=== PATIENT | female | born 1980 | race African-American/Black ===

== ENCOUNTER 2017-08-18 08:03 | Emergency (ER) | payer OTHER, MEDICAID ==
[~2017-08-18] VITALS: Ht 167.6 cm; Wt 95.8 kg
[~2017-08-18 08:03] MED LIST: DOCU240C31 PO; IBUP100T11 PO; LABE300T PO; METH500T2 PO; NIFE30TA25 PO; OXYC-302 PO
[2017-08-18] MEDS ORDERED: DIAZEPAM 5 MG TABLET ONE ×2 (09:18→09:22)
[2017-08-18] MEDS ORDERED: HYDROcodone/APAP 5/325 TABLET ONE (09:18)
[2017-08-18] MEDS ORDERED: HYDROcodone/APAP 5/325 TABLET PO ONE (09:30)
[2017-08-18] MEDS ORDERED: DIAZEPAM 5 MG TABLET PO ONE (09:30)
[2017-08-18 12:00] VITALS: BP 161/107
== END 2017-08-18 12:04 | disposition home or self-care (01) ==
LOC: ED 10:36
DX: S16.1XXA Strain of muscle, fascia and tendon at neck level, initial encounter (principal); S29.012A Strain of muscle and tendon of back wall of thorax, initial encounter; G44.219 Episodic tension-type headache, not intractable; I10 Essential (primary) hypertension; V49.49XA Driver injured in collision with other motor vehicles in traffic accident, initial encounter; Y93.89 Activity, other specified; Y92.89 Other specified places as the place of occurrence of the external cause; Y99.8 Other external cause status
CPT/HCPCS: 70450; 72072; 72125; 99284

== ENCOUNTER 2018-02-21 00:29 | Emergency (ER) | payer OTHER, MEDICAID ==
[~2018-02-21] VITALS: Ht 167.6 cm; Wt 97.7 kg
[~2018-02-21 00:29] MED LIST changes: -LABE300T PO; +LABE300T2 PO; +METH500T11 PO; -METH500T2 PO
[2018-02-21 00:34] VITALS: BP 150/104
[2018-02-21] MEDS ORDERED: IBUPROFEN 200 MG TABLET PO ONE (01:00)
[2018-02-21] MEDS ORDERED: IBUPROFEN 200 MG TABLET ONE (01:07)
== END 2018-02-21 01:41 | disposition home or self-care (01) ==
LOC: ED 01:30
DX: S83.92XA Sprain of unspecified site of left knee, initial encounter (principal); M25.462 Effusion, left knee; M25.552 Pain in left hip; W19.XXXA Unspecified fall, initial encounter; Y93.55 Activity, bike riding; Y92.520 Airport as the place of occurrence of the external cause; Y99.8 Other external cause status
CPT/HCPCS: 99284

== ENCOUNTER → 2018-03-07 | Outpatient (CLI) | payer OTHER, MEDICAID ==
[2018-03-07 10:55] LABS: BASOPHILS # (AUTO) 0.03 x10^3/uL (0-0.1); BASOPHILS % (AUTO) 1 % (0-1); EOSINOPHILS # (AUTO) 0.06 x10^3/uL (0-0.4); EOSINOPHILS % (AUTO) 1 % (1-7); LYMPHOCYTES # (AUTO) 2.98 x10^3/uL (1-3.4); LYMPHOCYTES % (AUTO) 47 % (22-44); MD NO; MEAN CORPUSCULAR HEMOGLOBIN 28.2 pg (27.0-34.8); MEAN CORPUSCULAR HGB CONC 33.1 g/dL (32.4-35.8); MEAN CORPUSCULAR VOLUME 85.1 fL (80-100); MEAN PLATELET VOLUME 7.4 fL (7.4-10.4); MONOCYTES # (AUTO) 0.31 x10^3/uL (0.2-0.8); MONOCYTES % (AUTO) 5 % (2-9); NEUTROPHILS # (AUTO) 2.98 x10^3/uL (1.8-6.8); NEUTROPHILS % (AUTO) 47 % (42-75); PLATELET COUNT 428 x10^3/uL (130-400); RED BLOOD COUNT 4.14 x10^6/uL (3.82-5.3); RED CELL DISTRIBUTION WIDTH 14.4 % (9.6-15.2)
[2018-03-07 11:01] LABS: CHLORIDE 107 mmol/L (98-107)
[2018-03-07 11:16] LABS: ALANINE AMINOTRANSFERASE 15 U/L (12-78); ALBUMIN 3.7 g/dL (3.4-5.0); ALKALINE PHOSPHATASE 75 U/L (45-117); ANION GAP 9 mmol/L (5-15); BILIRUBIN,TOTAL 0.4 mg/dL (0.2-1.0); CALCIUM 9.1 mg/dL (8.5-10.1); CREATININE 0.75 mg/dL (0.55-1.02); TOTAL PROTEIN 7.6 g/dL (6.4-8.2)
== END | disposition home or self-care (01) ==
LOC: STAR 09:27
PROVIDERS: ATTEND Obstetrics & Gynecology
DX: Z01.818 Encounter for other preprocedural examination (principal); D25.1 Intramural leiomyoma of uterus; N92.0 Excessive and frequent menstruation with regular cycle
CPT/HCPCS: 36415; 80053; 84703; 85025; 93005

== ENCOUNTER 2018-03-12 06:47 | Inpatient (IN) | payer OTHER, MEDICAID ==
[~2018-03-12] VITALS: Ht 167.6 cm; Wt 105.2 kg
[~2018-03-12 06:47] MED LIST changes: +LISI1TAB3 PO
[2018-03-12 08:13] LABS: HCG UR SG 1.023 (1.003-1.030)
[2018-03-12] MEDS ORDERED: LACTATED RINGERS 1,000 ML IV SCH (09:00)
[2018-03-12] MEDS ORDERED: OxyconTIN ER 10 MG TAB.ER PO ONE (09:00)
[2018-03-12] MEDS ORDERED: ACETAMINOPHEN 500 MG TABLET PO ONE (09:00)
[2018-03-12] MEDS ORDERED: ONDANSETRON ODT 8 MG PO ONE (09:00)
[2018-03-12] MEDS ORDERED: SCOPOLAMINE PATCH, 1.5MG PATCH.TD72 TD ONE (09:00)
[2018-03-12] MEDS ORDERED: GABAPENTIN 300 MG CAPSULE PO ONE (09:00)
[2018-03-12] MEDS ORDERED: MIDAZOLAM 1 MG/ML, 2ML ONE (09:29)
[2018-03-12] MEDS ORDERED: FENTANYL PF 250 MCG/5ML ONE (09:29)
[2018-03-12] MEDS ORDERED: PROPOFOL 10 MG/ML, 20ML ONE (09:30)
[2018-03-12] MEDS ORDERED: LIDOCAINE-MPF 2% ,5ML ONE (09:30)
[2018-03-12] MEDS ORDERED: ROCURONIUM 10MG/ML,5ML ONE (09:31)
[2018-03-12] MEDS ORDERED: DEXAMETHASONE 4 MG/ML, 1ML ONE ×2 (09:31)
[2018-03-12] MEDS ORDERED: BUPIVACAINE/PF 0.5% ONE (09:32)
[2018-03-12] MEDS ORDERED: CEFOTETAN PMX 2GM/50ML 50 ML ONE (09:32)
[2018-03-12] MEDS ORDERED: OXYcodone 5 MG/5 ML ORAL.SOL UDC PO PRN (12:30)
[2018-03-12] MEDS ORDERED: PROMETHAZINE 25 MG/ML, 1ML IV PRN (12:30)
[2018-03-12] MEDS ORDERED: HALOPERIDOL 5 MG/ML IV PRN (12:30)
[2018-03-12] MEDS ORDERED: LABETALOL 5MG/ML, 20ML IV PRN (12:30)
[2018-03-12] MEDS ORDERED: FENTANYL PF 100 MCG/2ML IV PRN (12:30)
[2018-03-12] MEDS ORDERED: MEPERIDINE/PF 25MG/0.5ML IVPush PRN (12:30)
[2018-03-12] MEDS ORDERED: hydrALAzine 20 MG/ML, 1ML IV PRN (12:30)
[2018-03-12] MEDS ORDERED: HYDROmorphone 1 MG/ML, 1ML IV PRN (12:30)
[2018-03-12] MEDS ORDERED: LORazepam 2 MG/ML, 1ML IVPush PRN (12:30)
[2018-03-12] MEDS ORDERED: OXYcodone 5 MG/5 ML ORAL.SOL UDC ONE (12:39)
[2018-03-12 13:45] VITALS: BP 119/79
[2018-03-12] MEDS ORDERED: ACETAMINOPHEN 650 MG SUPP PR PRN (14:00)
[2018-03-12] MEDS ORDERED: ACETAMINOPHEN 325 MG TABLET PO PRN (14:00)
[2018-03-12] MEDS ORDERED: BISACODYL 10 MG SUPP PR PRN (14:00)
[2018-03-12] MEDS: SIMETHICONE 80 MG CHEW TAB PO SCH ×2 (15:18→20:26)
[2018-03-12] MEDS: OXYcodone/APAP 5/325MG TABLET PO PRN ×2 (15:19→20:26)
[2018-03-12] MEDS: IBUPROFEN 600 MG TABLET PO SCH ×3 (15:19→21:55)
[2018-03-12] MEDS: morphine SULFATE 10 MG/ML, 1ML IV PRN ×2 (16:08→16:29)
[2018-03-12 16:15] LABS: MEAN CORPUSCULAR HEMOGLOBIN 28.3 pg (27.0-34.8); MEAN CORPUSCULAR HGB CONC 33.4 g/dL (32.4-35.8); MEAN CORPUSCULAR VOLUME 84.5 fL (80-100); MEAN PLATELET VOLUME 7.2 fL (7.4-10.4); PLATELET COUNT 345 x10^3/uL (130-400); RED BLOOD COUNT 4.08 x10^6/uL (3.82-5.3); RED CELL DISTRIBUTION WIDTH 14.6 % (9.6-15.2)
[2018-03-12 16:54] LABS: MD SCAN
[2018-03-12 16:56] LABS: BASOPHILS % (AUTO) 0 % (0-1); EOSINOPHILS % (AUTO) 0 % (1-7); LYMPHOCYTES # (AUTO) 1.23 x10^3/uL (1-3.4); LYMPHOCYTES % (AUTO) 8 % (22-44); MONOCYTES # (AUTO) 0.06 x10^3/uL (0.2-0.8); MONOCYTES % (AUTO) 0 % (2-9); NEUTROPHILS # (AUTO) 14.47 x10^3/uL (1.8-6.8); NEUTROPHILS % (AUTO) 92 % (42-75)
[2018-03-12] MEDS: D5%-LACTATED RINGERS 1,000 ML IV SCH (17:00)
[2018-03-12 20:08] VITALS: BP 141/92
[2018-03-12] MEDS: DOCUSATE 100 MG CAPSULE PO SCH (20:25)
[2018-03-12] MEDS: HYDROCHLOROTHIAZIDE 12.5 MG CAPSULE PO SCH (20:25)
[2018-03-12] MEDS: SENNA/DOCUSATE TABLET PO SCH (20:26)
[2018-03-12] MEDS: LISINOPRIL 10 MG TABLET PO SCH (20:26)
[2018-03-12] MEDS ORDERED: ZOLPIDEM 5MG TABLET PO PRN (21:00)
[2018-03-13 00:19] VITALS: BP 133/86
[2018-03-13] MEDS: OXYcodone/APAP 5/325MG TABLET PO PRN ×6 (00:30→21:14)
[2018-03-13] MEDS: D5%-LACTATED RINGERS 1,000 ML IV SCH ×3 (01:57→21:20)
[2018-03-13 04:13] VITALS: BP 117/76
[2018-03-13 05:34] LABS: BASOPHILS % (AUTO) 0 % (0-1); EOSINOPHILS # (AUTO) 0.01 x10^3/uL (0-0.4); EOSINOPHILS % (AUTO) 0 % (1-7); LYMPHOCYTES # (AUTO) 1.27 x10^3/uL (1-3.4); LYMPHOCYTES % (AUTO) 9 % (22-44); MD NO; MEAN CORPUSCULAR HEMOGLOBIN 28.5 pg (27.0-34.8); MEAN CORPUSCULAR HGB CONC 33.5 g/dL (32.4-35.8); MEAN CORPUSCULAR VOLUME 85.2 fL (80-100); MEAN PLATELET VOLUME 7.5 fL (7.4-10.4); MONOCYTES # (AUTO) 0.37 x10^3/uL (0.2-0.8); MONOCYTES % (AUTO) 3 % (2-9); NEUTROPHILS # (AUTO) 13.32 x10^3/uL (1.8-6.8); NEUTROPHILS % (AUTO) 89 % (42-75); PLATELET COUNT 317 x10^3/uL (130-400); RED BLOOD COUNT 3.66 x10^6/uL (3.82-5.3); RED CELL DISTRIBUTION WIDTH 14.5 % (9.6-15.2)
[2018-03-13 05:41] LABS: ALANINE AMINOTRANSFERASE 13 U/L (12-78); ANION GAP 6 mmol/L (5-15); CALCIUM 8.1 mg/dL (8.5-10.1); CHLORIDE 104 mmol/L (98-107); CREATININE 0.84 mg/dL (0.55-1.02)
[2018-03-13 05:43] LABS: ALKALINE PHOSPHATASE 66 U/L (45-117); BILIRUBIN,TOTAL 0.4 mg/dL (0.2-1.0); TOTAL PROTEIN 6.5 g/dL (6.4-8.2)
[2018-03-13] MEDS: IBUPROFEN 600 MG TABLET PO SCH ×4 (06:28→21:13)
[2018-03-13 07:26] VITALS: BP 118/71
[2018-03-13] MEDS: SIMETHICONE 80 MG CHEW TAB PO SCH ×3 (08:40→21:13)
[2018-03-13] MEDS: DOCUSATE 100 MG CAPSULE PO SCH ×2 (09:00→21:13)
[2018-03-13] MEDS ORDERED: HYDROCHLOROTHIAZIDE 12.5 MG CAPSULE PO SCH (09:00)
[2018-03-13] MEDS ORDERED: LISINOPRIL 10 MG TABLET PO SCH (09:00)
[2018-03-13 13:44] VITALS: BP 119/75
[2018-03-13 19:00] VITALS: BP 121/77
[2018-03-13] MEDS: SENNA/DOCUSATE TABLET PO SCH (21:14)
[2018-03-13] MEDS: HYDROCHLOROTHIAZIDE 12.5 MG CAPSULE PO SCH (21:21)
[2018-03-13] MEDS: LISINOPRIL 10 MG TABLET PO SCH (21:22)
[2018-03-14] MEDS: OXYcodone/APAP 5/325MG TABLET PO PRN ×6 (01:55→22:14)
[2018-03-14 02:53] VITALS: BP 120/72
[2018-03-14] MEDS ORDERED: OXYC-302 PO (03:43)
[2018-03-14] MEDS ORDERED: DOCU-131 PO (03:44)
[2018-03-14] MEDS ORDERED: IBUP-1222 PO (03:46)
[2018-03-14] MEDS: D5%-LACTATED RINGERS 1,000 ML IV SCH ×2 (04:00→12:00)
[2018-03-14] MEDS: IBUPROFEN 600 MG TABLET PO SCH ×4 (06:01→20:58)
[2018-03-14] MEDS: LISINOPRIL 10 MG TABLET PO SCH (08:43)
[2018-03-14] MEDS: HYDROCHLOROTHIAZIDE 12.5 MG CAPSULE PO SCH (08:51)
[2018-03-14] MEDS: SIMETHICONE 80 MG CHEW TAB PO SCH ×3 (08:51→20:58)
[2018-03-14] MEDS: DOCUSATE 100 MG CAPSULE PO SCH ×2 (08:52→20:57)
[2018-03-14 09:08] VITALS: BP 126/88
[2018-03-14 13:17] VITALS: BP 127/84
[2018-03-14 19:00] VITALS: BP 142/92
[2018-03-14] MEDS: SENNA/DOCUSATE TABLET PO SCH (20:57)
== END 2018-03-14 22:21 | disposition home or self-care (01) | DRG 743 ==
LOC: ORIP 06:47 → 4NOR 13:25
PROVIDERS: ADMIT Obstetrics & Gynecology; ATTEND Obstetrics & Gynecology
PROC: 0UT70ZZ Resection of Bilateral Fallopian Tubes, Open Approach (ICD-10-PCS; 2018-03-12)
PROC: 0UT90ZL Resection of Uterus, Supracervical, Open Approach (ICD-10-PCS; principal; 2018-03-12 09:30)
DX: D25.9 Leiomyoma of uterus, unspecified (principal); N92.0 Excessive and frequent menstruation with regular cycle; I10 Essential (primary) hypertension; Z98.51 Tubal ligation status; Z98.891 History of uterine scar from previous surgery; Z79.899 Other long term (current) drug therapy
CPT/HCPCS: 36415; J7121; 80053; 81025; 85025; 86850; 86900; 88307; G0378; J1100; J2250; J2704; J3010; J3490; Q0162; J2270; J7120; S0074

== ENCOUNTER 2018-07-09 05:13 | Emergency (ER) | payer OTHER, MEDICAID ==
[~2018-07-09] VITALS: Ht 167.6 cm; Wt 95.2 kg
[~2018-07-09 05:13] MED LIST changes: +DOCU-131 PO; +IBUP-1222 PO
[2018-07-09 05:16] VITALS: BP 143/96
== END 2018-07-09 05:54 | disposition home or self-care (01) ==
LOC: ED 05:38
DX: J01.00 Acute maxillary sinusitis, unspecified (principal)
CPT/HCPCS: 93005; 99283

== ENCOUNTER 2020-09-15 10:47 | Emergency (ER) | payer OTHER, MEDICAID ==
[~2020-09-15] VITALS: Ht 167.6 cm; Wt 98.8 kg
[~2020-09-15 10:47] MED LIST changes: +LISI1TAB23 PO; -LISI1TAB3 PO; -OXYC-302 PO; +OXYC1TAB14 PO
--- NOTE | 2020-09-15 12:51 | NUR ---
PT TO ROOM FROM LOBBY.
[2020-09-15 13:09] VITALS: BP 148/104
[2020-09-15] MEDS ORDERED: DIPHENHYDRAMINE 25 MG CAPSULE ONE (13:09)
[2020-09-15] MEDS ORDERED: DEXAMETHASONE 4 MG TABLET ONE (13:09)
--- NOTE | 2020-09-15 13:15 | NUR ---
MEDS GIVEN PER ERP ORDER. VSS/UPDATED IN COMPUTER.
[2020-09-15] MEDS ORDERED: DIPHENHYDRAMINE 25 MG CAPSULE PO ONE (13:30)
[2020-09-15] MEDS ORDERED: DEXAMETHASONE 4 MG TABLET PO ONE (13:30)
--- NOTE | 2020-09-15 13:43 | NUR ---
PT FOR RECHECK.
== END 2020-09-15 13:58 | disposition home or self-care (01) ==
LOC: ED 13:50
DX: T80.62XA Other serum reaction due to vaccination, initial encounter (principal); I10 Essential (primary) hypertension; J02.9 Acute pharyngitis, unspecified
CPT/HCPCS: 99283; Q0163